=== PATIENT | female | born 1965 | race Caucasian/White ===

== ENCOUNTER → 2024-06-20 | Outpatient (CLI) | payer BC ==
[2024-06-20 13:55] VITALS: BP 127/72; PULSE 68; RESP 16; TEMP 98.3
--- NOTE | 2024-06-20 14:57 | P.SLEEP ---
History of Present Illness DATE: 06/20/2024 CONSULTATION/NEW PATIENT EVALUATION HISTORY OF PRESENT ILLNESS/SLEEP-WAKE EVALUATION: 59-year-old lady had been evaluated in the sleep center for possible obstructive sleep apnea hypopnea syndrome. Patient has history of obstructive sleep apnea diagnosed in another institution 3 years ago. She was recommended to use CPAP but was not able to use it. Patient still has CPAP unit. SLEEP SCHEDULE: Usually sleep schedule 10 PM to 7 AM on weekdays and until 7:30 AM on weekend. FALLING ASLEEP: Patient does have problems with falling asleep. DURING SLEEP: Patient has loud snoring, wakes up from sleep 3 times with dry mouth, witnessed episodes of stop breathing during the sleep by her , palpitations episodes. No history of hypnogogical hallucinations, sleep paralysis, or cataplexy. DURING THE DAY/WAKE STATE: In the morning patient wake up tired, has problems with memory, concentration and anxiety. [place] sleepiness scale is 6. Patient takes 1 nap afternoon. PAST MEDICAL HISTORY: Hypertension, acid reflux, hyperlipidemia, anxiety, depression, history of diabetes mellitus. PAST SURGICAL HISTORY: Injection to the back for the pain problems. MEDICATIONS: Please see below. SOCIAL HISTORY: Please see below. FAMILY HISTORY: Please see below. REVIEW OF SYSTEMS: Loud snoring, multiple awakenings from sleep, sleepiness during the day. No fevers. No double vision. No recent chest pain. No shortness of breath. No abdominal pain. No bleeding episodes. No blood in urine. No seizure episodes. PHYSICAL EXAMINATION: GENERAL: A pleasant patient without any distress. VITAL SIGNS: Please see below, weight 175 pounds, BMI 30.0. HEENT: PERRLA, EOMI. Evaluation of oropharynx showed tongue protrudes midline, low position of soft palate Mallampati 4, retrognathia 2 mm. NECK: Supple. No JVD. Thyroid is not palpable. 15 inches in circumference. LUNGS: Clear to percussion and to auscultation. Good air exchange. No wheezing or rhonchi. HEART: S1, S2 regular. No murmurs, gallops or rubs. ABDOMEN: Soft and nontender. Bowel sounds are present. No organomegaly appreciated. EXTREMITIES: No clubbing or cyanosis. COIL WINDER REPAIR: Awake, alert, and oriented x3. Cranial nerves 2 to 7 intact. There is no fasciculation or atrophy noted. No focal deficits observed. ASSESSMENT: 1. Loud snoring, multiple awakenings from sleep, witnessed episodes of stop breathing during the sleep, extremely low position of soft palate Mallampati 4, retrognathia 2 mm, sleepiness. Obstructive sleep apnea hypopnea syndrome. 2. Mild obesity, BMI 30.0. 3. Hypertension. 4. History of diabetes mellitus. 5 hyperlipidemia. 6 . Anxiety. 7. Depression. PLAN: 1. Polysomnography for evaluation of patient's breathing during sleep. 2. Following plan after reading sleep study, patient would like to consider inspire treatment. 3. Preferable position during sleep on the side. 4. No driving if patient feels any sleepiness. Patient is aware of civil and criminal liability for unsafe driving. 5. Sleep hygiene with regular sleep time for at least 7.5-8 hours. 6. Watching weight. Thank you very much for referring this patient for consultation. Sincerely, Rahul Snider MD, PhD, FAASM. Diplomat of [place] [employer], Sleep Medicine Board by [place] [employer] [employer] [facility] cc: Solange Scott [facility] Past Medical History Past Medical History: GERD/Reflux, Hyperlipidemia, Hypertension, Sleep Apnea/CPAP/BIPAP Additional Past Medical History / Comment(s): HORSESHOE SHAPED KIDNEYS, HEADACHES History of Any Multi-Drug Resistant Organisms: None Reported Past Surgical History: No Surgical Hx Reported Past Anesthesia/Blood Transfusion Reactions: No Reported Reaction Past Psychological History: Anxiety, Depression Smoking Status: Former smoker Past Alcohol Use History: Occasional Past Drug Use History: Cocaine, Marijuana Additional Drug Use History / Comment(s): MESCALIN IN TEENS, COCAINE 34 YEARS AGO - Past Family History Father Family Medical History: Hyperlipidemia, Hypertension Mother Family Medical History: Coronary Artery Disease (CAD), Hypertension Additional Family Medical History / Comment(s): IN SLEEP Medications and Allergies Home Medications Medication Instructions Recorded Confirmed Type Aspirin EC [Ecotrin Low Dose] 81 mg PO DAILY 06/20/24 06/20/24 History Biotin [Biotin Disolve] 5,000 mcg PO DAILY 06/20/24 06/20/24 History FLUoxetine HCL 20 mg PO DAILY 06/20/24 06/20/24 History HYDROcodone/APAP 5-325MG [[place] See Rx Instructions .ROUTE .COMPLEX 06/20/24 06/20/24 History 5-325] Melatonin 3 mg PO TID 06/20/24 06/20/24 History Omeprazole 40 mg PO DAILY 06/20/24 06/20/24 History Simvastatin [Zocor] 20 mg PO HS 06/20/24 06/20/24 History atenoloL [Tenormin] 50 mg PO DAILY 06/20/24 06/20/24 History buPROPion HCL [Wellbutrin SR] 200 mg PO BID 06/20/24 06/20/24 History busPIRone HCL [Buspar] 7.5 mg PO TID 06/20/24 06/20/24 History clonazePAM 0.5 mg PO BID 06/20/24 06/20/24 History lisinopriL [Zestril] 10 mg PO DAILY 06/20/24 06/20/24 History methocarbamoL 750 mg PO Q6HR 06/20/24 06/20/24 History Physical Exam Vitals: Vital Signs Temp Pulse Resp BP Pulse Ox 06/20/24 13:54 98.3 F 68 16 127/72 98 Intake and Output 06/19/24 06/20/24 06/20/24 22:59 06:59 14:59 Other: Weight 79.379 kg Sleep Note - Sleep Data ESS Total: 6 - Sleep Note Sleep Note: Temperature: 98.3 F Pulse Rate: 68 Respiratory Rate: 16 Blood Pressure: 127/72 SpO2: 98 Height: 5 ft 4 in Weight: 79.379 kg BMI: Neck Circumference: 15
== END ==
LOC: 3 N SLEEP 13:22
PROVIDERS: ATTEND Internal Medicine
DX: G47.33 Obstructive sleep apnea (adult) (pediatric) (principal); E66.9 Obesity, unspecified; Z68.30 Body mass index [BMI] 30.0-30.9, adult; I10 Essential (primary) hypertension; E78.5 Hyperlipidemia, unspecified; F41.9 Anxiety disorder, unspecified; F32.A Depression, unspecified; E11.9 Type 2 diabetes mellitus without complications; Z79.899 Other long term (current) drug therapy; Z87.891 Personal history of nicotine dependence
CPT/HCPCS: 99202